=== PATIENT | female | born 1990 | race African-American/Black ===

== ENCOUNTER 2017-12-22 12:43 | Emergency (ER) | payer MEDICAID ==
[~2017-12-22] VITALS: Ht 160 cm; Wt 77.0 kg
[2017-12-22 13:31] VITALS: BP 123/74
== END 2017-12-22 18:19 | disposition left against medical advice (07) ==
LOC: ER 14:04
DX: Z53.21 Procedure and treatment not carried out due to patient leaving prior to being seen by health care provider (principal); F17.210 Nicotine dependence, cigarettes, uncomplicated; Z88.6 Allergy status to analgesic agent